=== PATIENT | male | born 1995 | race Caucasian/White ===

== ENCOUNTER 2018-02-22 22:48 | Emergency (ER) | payer OTHER ==
[2018-02-22 22:54] VITALS: BP 121/68; PULSE 110; TEMP 98.3; BMI 25.1
[2018-02-22 23:42] LABS: BASO % 0.2 % (0-2.0); EOS % 4.2 % (0-4.5); HEMATOCRIT 43.9 % (35.4-49); HEMOGLOBIN 15.6 GM/dL (11.7-16.9); LYMPH % 34.7 % (8-40); MCHC 35.4 g/dl (32.0-35.9); MEAN CELL VOLUME 87.5 fl (80-96); MEAN PLT VOLUME 8.5 fl (7.5-11.1); MONO % 11.2 % (3.8-10.2); NEUT % 49.7 % (42.8-82.8); PLATELET COUNT 191 K/MM3 (134-434); RBC 5.02 M/mm3 (4.00-5.60); RDW 13.4 % (11.9-15.9); WHITE BLOOD COUNT 5.9 K/mm3 (4.0-10.0)
[2018-02-23 00:28] LABS: ALBUMIN 4.5 g/dl (3.4-5.0); BILIRUBIN,TOTAL 0.7 mg/dL (0.2-1.0); BLOOD UREA NITROGEN 17 mg/dL (7-18); CALCIUM 9.3 mg/dL (8.5-10.1); CO2 29 mmol/L (21-32); CREATININE 1.1 mg/dL (0.7-1.3); GLUCOSE,RANDOM 78 mg/dL (74-106); SGOT/AST 39 U/L (15-37); SGPT/ALT 46 U/L (12-78)
[2018-02-23 01:10] LABS: ALK PHOS 118 U/L (45-117); ANION GAP 7 (8-16); CHLORIDE 102 mmol/L (98-107); POTASSIUM 4.1 mmol/L (3.5-5.1); SODIUM 138 mmol/L (136-145); TOT PROT 7.4 g/dl (6.4-8.2)
--- NOTE | 2018-02-23 01:12 | PDOC ---
History of Present Illness - General Chief Complaint: Overdose Stated Complaint: OVERDOSE Time Seen by Provider: 02/22/18 23:02 History Source: Patient Exam Limitations: No Limitations - History of Present Illness Initial Comments: 02/23/18 01:23 Best Contact: Pmhx:N/A Pshx:N/A Allergies: NKDA 22-year-old male presents to the emergency department stating he took 5 tablets of Percocet 5/325 and 24 tablets of Vicodin 5 mg over the past 48 hours. Patient states he started taking Percocets 5 years ago when he was 17 years old. Patient says over the past 7 months he was away in nursing home and was unable to take anything. Patient was released 1 month ago and started taking Percocets again times one week ago. Over the past 48 hours, he's been taking the medication intermittently. She denies headache, dizziness, lightheadedness, neck pains, back pains, chest pain, shortness of breath, abdominal pains, flank pains, urinary symptoms. Patient states he's been taking the Percocet some Vicodin's due to stress. Patient adamantly denies suicidal or homicidal tendencies/thoughts patient admits to intentional ingestion of Percocet some Vicodin to get high Past History - Past Medical History Allergies/Adverse Reactions: Allergies Allergy/AdvReac Type Severity Reaction Status Date / Time No Known Allergies Allergy Verified 02/22/18 22:48 Home Medications: Ambulatory Orders NK [No Known Home Medication] 01/18/16 Anemia: No Asthma: No Cancer: No Cardiac Disorders: No CVA: No COPD: No CHF: No Dementia: No Diabetes: No GI Disorders: No Disorders: No HTN: No Hypercholesterolemia: No Kidney Stones: No Liver Disease: No Psychiatric Problems: Yes (ANXIETY) Seizures: No Thyroid Disease: No - Surgical History Abdominal Surgery: No Appendectomy: No Cardiac Surgery: No Cholecystectomy: No Lung Surgery: No Neurologic Surgery: No Orthopedic Surgery: No - Reproductive History Testicular Surgery: Yes (UNDESCENDED TESTES R SURGERY AT AGE 10) - Immunization History Immunization Up to Date: Yes - Suicide/Smoking/Psychosocial Hx Smoking History: Current every day smoker Have you smoked in the past 12 months: No Number of Cigarettes Smoked Daily: 10 Cigars Per Day: 0 Information on smoking cessation initiated: No 'Breaking Loose' booklet given: 10/28/15 Hx Alcohol Use: No Drug/Substance Use Hx: Yes (percocets, marajuana) Substance Use Type: Heroin, Marijuana, Tranquilizers Hx Substance Use Treatment: Yes (patient reports uncompleted detox at [place] and rehb. at [facility]) Review of Systems - Review of Systems Able to Perform ROS?: Yes Comments:: 02/23/18 01:31 CONSTITUTIONAL: Absent: fever, chills, diaphoresis, generalized weakness, malaise, loss of appetite HEENT: Absent: rhinorrhea, nasal congestion, throat pain, throat swelling, difficulty swallowing, mouth swelling, ear pain, eye pain, visual Changes CARDIOVASCULAR: Absent: chest pain, loss of consciousness, palpitations, irregular heart rate, peripheral edema RESPIRATORY: Absent: cough, shortness of breath, dyspnea with exertion, orthopnea, wheezing, stridor, hemoptysis GASTROINTESTINAL: Absent: abdominal pain, abdominal distension, nausea, vomiting, diarrhea, constipation, melena, hematochezia GENITOURINARY: Absent: dysuria, frequency, urgency, hesitancy, hematuria, flank pain, genital pain MUSCULOSKELETAL: Absent: myalgia, arthralgia, joint swelling SKIN: Absent: rash, itching, pallor HEMATOLOGIC/IMMUNOLOGIC: Absent: easy bleeding, easy bruising, lymphadenopathy, frequent infections ENDOCRINE: Absent: unexplained weight gain, unexplained weight loss, heat intolerance, cold intolerance NEUROLOGIC: Absent: headache, focal weakness or paresthesias, dizziness, unsteady gait, seizure, mental status changes, bladder or bowel incontinence PSYCHIATRIC: Absent: anxiety, depression, suicidal or homicidal ideation, hallucinations. Is the patient limited German proficient: No *Physical Exam - Vital Signs Last Vital Signs Temp Pulse Resp BP Pulse Ox 98.3 F 110 H 20 121/68 98 02/22/18 22:51 02/22/18 22:51 02/22/18 22:51 02/22/18 22:51 02/22/18 22:51 - Physical Exam Comments: 02/23/18 01:31 GENERAL: Well developed, well nourished. Awake and alert. No acute distress. HEENT: Normocephalic, atraumatic. PERRLA, EOMI. No conjunctival pallor. Sclera are non- icteric. Moist mucous membranes. Oropharynx is clear. NECK: Supple. Full ROM. No JVD. Carotid pulses 2+ and symmetric, without bruits. No thyromegaly. No lymphadenopathy. CARDIOVASCULAR: Regular rate and rhythm. No murmurs, rubs, or gallops. Distal pulses are 2+ and symmetric. PULMONARY: No evidence of respiratory distress. Lungs clear to auscultation bilaterally. No wheezing, rales or rhonchi. ABDOMINAL: Soft. Non-tender. Non-distended. No rebound or guarding. No organomegaly. Normoactive bowel sounds. MUSCULOSKELETAL Normal range of motion at all joints. No bony deformities or tenderness. No CVA tenderness. EXTREMITIES: No cyanosis. No clubbing. No edema. No calf tenderness. SKIN: Warm and dry. Normal capillary refill. No rashes. No jaundice. NEUROLOGICAL: Alert, awake, appropriate. Cranial nerves 2-12 intact. No deficits to light touch and temperature in face, upper extremities and lower extremities. No motor deficits in the in face, upper extremities and lower extremities. Normoreflexic in the upper and lower extremities. Normal speech. Toes are down- going bilaterally. Gait is normal without ataxia. PSYCHIATRIC: Cooperative. Good eye contact. Appropriate mood and affect. ED Treatment Course - LABORATORY CBC & Chemistry Diagram: 02/22/18 23:22 02/22/18 23:22 - ADDITIONAL ORDERS Additional order review: 02/22/18 23:22 RBC 5.02 MCV 87.5 MCHC 35.4 RDW 13.4 MPV 8.5 Neutrophils % 49.7 Lymphocytes % 34.7 D Monocytes % 11.2 H Eosinophils % 4.2 D Basophils % 0.2 *DC/Admit/Observation/Transfer Diagnosis at time of Disposition: Overdose opiate Qualifiers: Encounter type: initial encounter Injury intent: accidental or unintentional Qualified Code(s): T40.601A - Poisoning by unspecified narcotics, accidental ( unintentional), initial encounter - Discharge Dispostion Condition at time of disposition: Stable Admit: No - Referrals Referrals: Norman Costello MD [Staff Physician] - - Patient Instructions Additional Instructions: Avoid narcotics and or recreational drugs Follow-up with your physician this week Return back to the ER for severe/persistent or worsening symptoms or any concerns - Post Discharge Activity Progress Note - Progress Note Progress Note: 0116hrs: Called poison control. Directly to give patient Acetadote 150 mg/kg in 200 mL of D5W over one hour infusion 0432hrs: Spoke to Poison control Dr. Quintana with update on labs. Dr. Quintana states is salicylic is wnl, he is stable
[2018-02-23] MEDS ORDERED: ACETYLCYSTEINE 20% 200MG/ML 30ML VIAL *FOR INJECTION USE ONLY IVPB ONE (01:13)
[2018-02-23 01:14] LABS: URINE AMPHETAMINES NEGATIVE ng/ml (CUTOFF=500); URINE BARBITURATES NEGATIVE ng/ml (CUTOFF=200); URINE BENZODIAZEPINES NEGATIVE ng/ml (CUTOFF=200)
[2018-02-23 01:15] LABS: METHADONE, UR NEGATIVE ng/ml (CUTOFF=300); PHENCYCLIDINE,URINE NEGATIVE ng/ml (CUTOFF=25)
[2018-02-23 01:18] LABS: COCAINE, UR POSITIVE ng/ml (CUTOFF=300); OPIATES, URI POSITIVE ng/ml (CUTOFF=300)
[2018-02-23] MEDS ORDERED: WATER IVPB ONE (01:30)
[2018-02-23] MEDS ORDERED: ACETYLCYSTEINE IVPB ONE (01:30)
[2018-02-23] MEDS ORDERED: DEXTROSE 5% IVPB ONE (01:30)
[2018-02-23 02:00] LABS: ACETAMINOPHEN 4.779 ug/mL
[2018-02-23] MEDS ORDERED: ONDANSETRON 4 MG/2 ML VIAL ONE (03:25)
--- NOTE | 2018-02-23 14:33 | EKG ---
Test Reason : Blood Pressure : / mmHG Vent. Rate : 073 BPM Atrial Rate : 073 BPM P-R Int : 172 ms QRS Dur : 104 ms QT Int : 382 ms P-R-T Axes : 073 098 057 degrees QTc Int : 420 ms NORMAL SINUS RHYTHM RIGHTWARD AXIS BORDERLINE ECG NO PREVIOUS ECGS AVAILABLE Confirmed by MD Cuate, Fredi ([id number]) on 02/23/2018 2:33:45 PM Referred By: Confirmed By:Fredi Cuello MD
== END 2018-02-23 06:10 | disposition home or self-care (01) ==
LOC: JER 22:48
PROC: 3E033GC Introduction of Other Therapeutic Substance into Peripheral Vein, Percutaneous Approach (ICD-10-PCS; principal; 2018-02-22)
DX: T40.2X1A Poisoning by other opioids, accidental (unintentional), initial encounter (principal); Y92.018 Other place in single-family (private) house as the place of occurrence of the external cause
CPT/HCPCS: 36415; 80053; 80307; 85025; 93005; 93010; 96365; 99285-25